=== PATIENT | female | born 1985 | race Caucasian/White ===

== ENCOUNTER 2021-10-07 18:16 | Observation (INO) | END 2021-10-07 20:52 | disposition home or self-care (01) | LOC: 1NENULAB | PROVIDERS: ADMIT Student in an Organized Health Care Education/Training Program; ATTEND Student in an Organized Health Care Education/Training Program ==

== ENCOUNTER 2021-10-13 21:51 | Observation (INO) | END 2021-10-14 00:22 | disposition home or self-care (01) | LOC: 1NENULAB 21:51 → INTOOBSV 21:51 | PROVIDERS: ADMIT Advanced Practice Midwife; ATTEND Advanced Practice Midwife ==

== ENCOUNTER 2021-10-20 07:51 | Inpatient (IN) ==
[2021-10-20] MEDS ORDERED: Azithromycin 500 MG in 0.9 % Sodium Chloride 250 ML IVPB PRN (08:05)
[2021-10-20] MEDS ORDERED: Ondansetron 4 MG/2 ML VIAL IVP PRN (08:05)
[2021-10-20] MEDS ORDERED: Naloxone 0.4 MG/ML INJ IVP PRN (08:05)
[2021-10-20] MEDS ORDERED: *HR* Nalbuphine 10 MG/ML AMPUL IV PRN (08:05)
[2021-10-20] MEDS ORDERED: Famotidine 20 MG/2 ML VIAL IVP PRN (08:05)
[2021-10-20] MEDS ORDERED: Metoclopramide 10 MG/2 ML VIAL IVP PRN (08:05)
[2021-10-20] MEDS ORDERED: Lidocaine 1% 20 ML MDV INFILT PRN (08:05)
[2021-10-20] MEDS ORDERED: Ringers Solution, Lactated 1,000 ML IVC SCH (08:15)
[2021-10-20] MEDS ORDERED: EPHEDrine 50 MG/ML VIAL IVP PRN (08:27)
[2021-10-20] MEDS ORDERED: Oxytocin 30 UNIT/503 ML BAG IVC SCH ×2 (08:30→19:54)
[2021-10-20] MEDS ORDERED: Epidural Premix (fent/bupiv) 110 ML EP SCH (08:30)
[2021-10-20 08:52] LABS: Basophils # 0.1 K/mcL (0.0-0.2); Basophils % 0.4 %; Eosinophils # 0.2 K/mcL (0.0-0.6); Eosinophils % 1.8 %; Hematocrit 31.1 % (35.3-44.9); Hemoglobin 10.6 g/dL (11.5-15.4); Immature Granulocytes % 1.9 % (0-4); Lymphocytes # 1.9 K/mcL (0.6-4.6); Lymphocytes % 15.8 %; Mean Corpuscular HGB Conc 34.1 g/dL (31.6-35.5); Mean Corpuscular Hemoglobin 28.6 pg (28.0-33.3); Mean Corpuscular Volume 84.1 fL (83.0-100.0); Mean Platelet Volume 11.3 fL (9.4-12.4); Monocytes # 0.7 K/mcL (0.0-1.3); Monocytes % 5.9 %; Neutrophils # 8.9 K/mcL (1.6-8.9); Platelet Count 190 K/mcL (140-400); Red Cell Distribution Width 13.9 % (11.5-14.5); Segmented Neutrophils % 74.2 %
[2021-10-20 09:00] LABS: Amphetamine Screen,Urine Negative ng/mL (Cutoff=1000); Barbiturate Screen,Urine Negative ng/mL (Cutoff=200); Benzodiazepines Screen,Urine Negative ng/mL (Cutoff=200); Cannabinoid Screen,Urine Negative ng/mL (Cutoff = 50); Cocaine Screen,Urine Negative ng/mL (Cutoff= 300); Opiate Screen,Urine Negative ng/mL (Cutoff=300); Phencyclidine Screen,Urine Negative ng/mL (Cutoff=25)
[2021-10-20] MEDS ORDERED: Benzocaine/Menthol 56 GM AEROSOL SPRAY TP PRN (19:54)
[2021-10-20] MEDS ORDERED: OXYTOCIN/RINGERS LACTATE 10 UNIT/166.6 ML BAG IVC ONE (19:54)
[2021-10-20] MEDS ORDERED: Ondansetron ODT 4 MG TAB.RAPDIS SL PRN (19:54)
[2021-10-20] MEDS ORDERED: Lanolin 7 G OINT...G. TP PRN (19:54)
[2021-10-20] MEDS: Acetaminophen 325 MG TABLET PO SCH (21:52)
[2021-10-20] MEDS: Ibuprofen 600 MG TABLET PO SCH (21:52)
[2021-10-21] MEDS: Ibuprofen 600 MG TABLET PO SCH ×2 (04:20→10:02)
[2021-10-21 05:22] LABS: Basophils % 0.3 %; Eosinophils # 0.2 K/mcL (0.0-0.6); Hematocrit 31.5 % (35.3-44.9); Hemoglobin 10.3 g/dL (11.5-15.4); Immature Granulocytes % 1.1 % (0-4); Lymphocytes % 17.3 %; Mean Corpuscular HGB Conc 32.7 g/dL (31.6-35.5); Mean Corpuscular Hemoglobin 27.8 pg (28.0-33.3); Mean Corpuscular Volume 84.9 fL (83.0-100.0); Mean Platelet Volume 11.6 fL (9.4-12.4); Monocytes # 0.7 K/mcL (0.0-1.3); Monocytes % 5.6 %; Neutrophils # 8.5 K/mcL (1.6-8.9); Platelet Count 185 K/mcL (140-400); Red Blood Count 3.71 M/mcL (3.82-4.97); Red Cell Distribution Width 13.9 % (11.5-14.5); Segmented Neutrophils % 73.7 %; White Blood Count 11.5 K/mcL (4.3-11.1)
[2021-10-21] MEDS: Acetaminophen 325 MG TABLET PO SCH (08:09)
[2021-10-21] MEDS ORDERED: Prenatal Vit/FA 1 EACH TABLET PO SCH (09:00)
[2021-10-21 16:25] VITALS: BP 117/73; PULSE 90; TEMP 98; O2SAT 98
== END 2021-10-21 18:37 | disposition home or self-care (01) | DRG 560 ==
LOC: 1NENULAB 07:51 → 1NENUOBS 19:53
PROVIDERS: ADMIT Advanced Practice Midwife; ATTEND Advanced Practice Midwife